=== PATIENT | female | born 1995 | race Caucasian/White ===

== ENCOUNTER 2017-03-16 20:53 | Observation (INO) | payer OTHER, SELFPAY ==
[2017-03-16 21:44] VITALS: BP 126/59; PULSE 92; RESP 20; TEMP 36.7; O2SAT 100; BMI 28.3
[2017-03-16 22:25] LABS: Basophils % 0.1 % (0.1-2.0); Eosinophils # 0.3 K/mm3 (0.0-0.4); Hematocrit 35.5 % (37.0-47.0); Lymphocytes # 1.5 K/mm3 (0.7-4.5); Mean Corpuscular HGB Conc 33.8 g/dL (31.8-35.4); Mean Corpuscular Hemoglobin 30.5 pg (27.0-31.2); Mean Corpuscular Volume 90.3 fl (81-99); Mean Platelet Volume 6.9 fl (7.4-10.4); Monocytes # 1.2 K/mm3 (0.1-1.0); Monocytes % 4.1 % (1.7-9.3); Neutrophils # 26.8 K/mm3 (1.8-7.8); Neutrophils % 89.8 % (37.0-80.0); Platelet Count 328 K/mm3 (142-424); Red Blood Count 3.93 M/mm3 (4.20-5.40); Red Cell Distribution Width 12.9 % (11.5-17.5); White Blood Count 29.8 K/mm3 (4.5-13.0)
[2017-03-16 22:32] LABS: MANUAL DIFFERENTIAL MANUAL DIFFERENTIAL (MANUAL DIFF)
--- NOTE | 2017-03-16 23:05 | HMH.EDPREG ---
ED Disposition Clinical Impression: Incomplete Disposition: Admitted as Observation Condition on Discharge: Good Referrals: Riya Messer [Primary Care Provider] - - Critical Care Critical Care Time: No Attestation: On 03/16/17, the high probability of a clinically significant, sudden or life threatening deterioration of the following system(s) required my full and direct attention, intervention and personal management. The time I documented below is in addition to time spent performing reported procedures but includes the following listed in this critical care notation. Medical Decision Making - Medical Records Medical records reviewed: Yes: I reviewed the patient's medical records. Vital Signs: 03/16/17 21:44 03/17/17 00:04 Temperature 98.1 F Temperature Source Oral Pulse Rate [Brachial] 92 H 112 H Respiratory Rate 20 20 Blood Pressure [Right Arm] 126/59 133/75 Blood Pressure Mean [Right Arm] 81 94 Blood Pressure Source [Right Arm] Automatic Cuff Blood Pressure Position [Right Arm] Sitting 02 Sat by Pulse Oximetry 100 98 Oxygen Delivery Method Room Air - Lab Data Lab Results 03/16/17 22:15: WBC 29.8 H*, RBC 3.93 L, Hgb 12.0 L, Hct 35.5 L, MCV 90.3, MCH 30.5, MCHC 33.8, RDW 12.9, Plt Count 328, MPV 6.9 L, Neut % (Auto) 89.8 H, Lymph % (Auto) 5.0 L, [place] % (Auto) 4.1, Eos % (Auto) 1.0, Baso % (Auto) 0.1, Neut # (Auto) 26.8 H, Lymph # (Auto) 1.5, [place] # (Auto) 1.2 H, Eos # (Auto) 0.3, Baso # (Auto) 0.0 03/16/17 22:15: HCG, Quant [id number] H 03/16/17 22:15: PT 10.8, INR 1.00 03/16/17 22:15: Sodium 134 L, Potassium 3.5, Chloride 101, Carbon Dioxide 22, Anion Gap 14.5, BUN 8, Creatinine 0.58, Estimated Creat Clear 188, Estimated GFR 133, Est GFR ( Amer) 160, Glucose 81, Calcium 8.7, Total Bilirubin 0.5, AST 72 H, ALT 295 H, Alkaline Phosphatase 58, Total Protein 7.5, Albumin 3.7, Globulin 3.8 H, Albumin/Globulin Ratio 1.0 L 03/16/17 22:15: Urine Opiates Screen Positive H, Ur Barbituates Screen Negative, Ur Phencyclidine Scrn Negative, Ur Amphetamines Screen Negative, U Methamphetamines Scrn Negative, U Benzodiazepines Scrn Negative, Urine Cocaine Screen Negative, U Marijuana (THC) Screen Positive H 03/16/17 23:24: Urine Color Yellow, Urine Appearance Clear, Urine pH 6.0, Ur Specific [place] >= 1.030, Urine Protein Negative, Urine Glucose (UA) Negative, Urine Ketones 3+, Urine Blood 1+, Urine Nitrate Negative, Urine Bilirubin Negative, Urine Urobilinogen 0.2, Ur Leukocyte Esterase Negative Result diagrams: 03/16/17 22:15 03/16/17 22:15 Orders (Tests/Meds): ED MEDICATIONS Discontinued Medications Generic Name Dose Route Start Last Admin Trade Name Freq PRN Reason Stop Dose Admin Hydromorphone HCl 1 mg 03/17/17 00:06 03/17/17 00:10 Dilaudid 2mg/Ml Syringe IV 03/17/17 00:07 1 mg ONCE ONE Administration Sodium Chloride 1,000 mls @ 999 mls/hr 03/16/17 23:00 03/16/17 23:14 Sod Chloride 0.9% 1000ml Bag IV 03/17/17 00:00 999 mls/hr .Q1H1M MANUEL Administration Promethazine HCl 12.5 mg 03/17/17 00:07 03/17/17 00:14 Phenergan 25mg/Ml 1ml Vial IV 03/17/17 00:08 12.5 mg ONCE ONE Administration Sodium Chloride 25 ml 03/17/17 00:07 Sod Chloride 0.9% 25ml Bag IV 03/17/17 00:08 ONCE ONE ORDERS Category Date Time Status ABO/RH Type Stat BBK 03/17/17 00:30 Received Complete Blood Count Auto Diff Stat Lab 03/16/17 22:15 Results UA [Urinalysis and Microscopic] Stat Lab 03/16/17 23:24 Results UA [Urinalysis and Microscopic] Stat Lab 03/16/17 23:25 Ordered US OB transvaginal Stat Ultrasound 03/16/17 23:20 Taken - US Data US Images: Pelvis ED US Reviewed: Yes: I discussed the US results w/the radiologist Findings Narrative: pending miscarriage - Physician Consults Physician Consulted: [email or web address] Reason -: Admission - Mauri Inquiry Pt receiving controlled substance: No HPI - General Chief complaint: Vaginal
--- NOTE | 2017-03-16 23:20 | US_ITS ---
US OB transvaginal HISTORY: ITS.REASON: vag bleeding ORDERING PHYSICIAN: Fadi Silva MD PATIENT AGE: 22 years COMPARISON: None FINDINGS: There is an intrauterine gestation with a crown-rump length of 1 cm correlating to gestational age of 7 weeks 1 day. heart tones are NOT identified. The gestation and sac are at the lower uterine segment. There is some increased echogenicity superior to the gestational sac which could be due to some bleeding. The adnexa are unremarkable. IMPRESSION: Nonviable gestation. No heart tones evident with an estimated gestational age of 7 weeks 1 day
[2017-03-16 23:44] LABS: Microscopic, Urine URINE MICROSCOPIC (MICROSCOPIC)
--- NOTE | 2017-03-16 23:45 | PC.NURSE ---
pt to rad for ultrasound.
[2017-03-16 23:51] LABS: Prothrombin Time 10.8 seconds (9.4-11.8)
[2017-03-16 23:58] LABS: Appearance,Urine CLEAR (Clear); Bilirubin,Urine Negative (Negative); Blood, Urine 1+ (Negative); Color,Urine YELLOW (Yellow); Glucose,Urine (UA) Negative (Negative); Ketones,Urine 3+ (Negative); Leukocyte Esterase,Urine Negative (Negative); Nitrate,Urine Negative (Negative); Protein,Urine Negative (Negative); Specific Gravity, Urine >= 1.030 (1.005-1.030); Urobilinogen,Urine 0.2 EU/dl (0.2)
[2017-03-17] VITALS (19 sets, daily range): BP systolic 90–133; BP diastolic 43–90; PULSE 71–112; RESP 12–22; TEMP 36.4–36.7; O2SAT 96–100; BMI 29.2
[2017-03-17 00:05] LABS: Alanine Aminotransferase 295 U/L (12-78); Albumin Level 3.7 gm/dL (3.4-5.0); Alkaline Phosphatase 58 U/L (46-116); Anion Gap 14.5 mEq/L (5-15); Aspartate Amino Transferase 72 U/L (15-37); Bilirubin,Total 0.5 mg/dL (0.2-1.0); Blood Urea Nitrogen 8 mg/dL (7-18); Calcium 8.7 mg/dL (8.5-10.1); Carbon Dioxide 22 mmol/L (21.0-32.0); Chloride 101 mmol/L (98-107); Creatinine Clearance Estimated 188 mL/min (0-300); Creatinine,Serum 0.58 mg/dL (0.55-1.02); Estimated Glomerular Filt Rate 133 ml/min (>60); GFR (African American) 160 ML/MIN (>60); Globulin 3.8 gm/dl (1.3-3.2); Glucose 81 mg/dL (74-106); Potassium 3.5 mmoL/L (3.5-5.1); Sodium 134 mmol/L (136-145); Total Protein,Serum 7.5 gm/dL (6.4-8.2)
[2017-03-17 00:10] LABS: Amphetamine/Metha Screen,Urine Negative ng/mL (<1000); Barbiturates Screen,Urine Negative ng/mL (<200); Benzodiazepines Screen,Urine Negative ng/mL (200); Cannabinoid Screen,Urine Positive ng/mL (<50); Cocaine Screen,Urine Negative ng/g (<300); Methadone Screen,Urine Negative ng/mL (<300); Opiate Screen,Urine Positive ng/mL (<300); Phencyclidine Screen,Urine Negative ng/mL (<25)
--- NOTE | 2017-03-17 00:42 | PC.NURSE ---
AT BEDSIDE WITH DR. MANRIQUE FOR VAGINAL EXAM.
--- NOTE | 2017-03-17 00:57 | PC.NURSE ---
AT BEDSIDE WITH PT. OR CONSENT SIGNED
--- NOTE | 2017-03-17 01:02 | PC.NURSE ---
SPOKE WITH PURNIMA IN PHARMACY. CONFIRMED 2G CEFAZOLIN IN 100ML NS.
[2017-03-17 01:18] LABS: Anisocytosis 1+; Lymphocytes % 4 % (10-50); Monocytes % 5 % (2-9); Neutrophils % 91 % (42-76); Platelet Estimate Normal; Total Cells Counted 100
[2017-03-17 01:42] LABS: Bacteria,Urine 1+ /lpf; Mucus,Urine 1+ /lpf
--- NOTE | 2017-03-17 01:59 | HMH.OPNOTE ---
Date of procedure: 03/17/17 (Inevitable spontaneous ) Pre-op Diagnosis:: Inevitable spontaneous Post-op diagnosis:: same Procedure performed:: Dilatation and suction curettage Surgeon:: Christopher Porras MD ASSISTANT MECHANIC:: Tulio Horn Anesthesia: GETA Estimated blood loss (mL): 100 Operative findings:: See operative note Operative note:: After the patient was prepped and draped in usual fashion and general anesthesia was administered, examination under anesthesia revealed an open cervix with blood and clots at the cervical os. A weighted speculum was placed within the posterior fourchette of the vagina, and the anterior lip of the cervix was grasped with a single-tooth tenaculum. The cervix easily admitted a #20 Hegar dilator. The uterus was sounded in an anteverted direction to 9 cm, after which a sharp curette was introduced into the endometrial cavity, with the retrieval of a large amount of products of conception. This was followed by suction with a #9 curved suction tip, and again by sharp curettage and suction, until it was felt that the cavity was clean. Intravenous Pitocin was begun, and the uterus was involuting well at the close of the procedure. The sponge and needle count was correct. The estimated blood loss was 100 cc. The patient tolerated the procedure well, and was taken to PACU in excellent condition. Her blood type is Rh+, and therefore she is not a candidate for RhoGam. She will be observed overnight. Pathology: other (Products of conception) Condition: stable Disposition: observation Complications:: None
--- NOTE | 2017-03-17 02:02 | P.PN_ITS ---
[facility] Anesthesia Checklist - Structural Data Admitted From: Home Planned Operative Procedure/s: d/c Consent for Planned Operative Procedure(s) Verified: Yes Verified Documents: Surgical Consent - Airway Assessment C-Spine Mobility Assessed: Yes TMJ Mobility Assessed: Yes Dentition: Good Dentition - Neurological Assessment Level of Consciousness: Awake, Alert - Anesthesia Plan Anesthesia Risk discussed: Yes Anesthesia Plan: Verified ASA Class: I Anesthesia Type: General [facility] Anesthesia HX I have reviewed the patient's past medical history: Yes
--- NOTE | 2017-03-17 02:02 | HMH.ANESI ---
[facility] Anesthesia Record Part I Intake, IV Amount: 500 Estimated blood loss (mL): 150 Urine output (mL): 50 Blood Pressure: 112/68 SaO2: 97 Pulse Rate: 95 Respiratory Rate: 12 Temperature: 97.9 F Patient is:: Awake Stable to PACU at:: 02:00
--- NOTE | 2017-03-17 02:03 | HMH.ANESII ---
[facility] Anesthesia Record Part II Discharge Time: 02:30 Destination: floor PACU nurse assessment reviewed?: Yes Patient Condition:: Good Anesthesia Complications:: None
[2017-03-17 03:35] LABS: Hematocrit 31.2 % (37.0-47.0)
[2017-03-17 03:39] LABS: Hemoglobin 10.6 g/dL (12.2-16.2)
--- NOTE | 2017-03-17 08:27 | P.CONPHA_ITS ---
[facility] Pharmacy VTE Monitoring - Patient Demographics Admission date: 03/17/17 Report Date: 03/17/17 Time: 08:25 Allergies/Adverse Reactions: Patient Allergies No Known Allergies Allergy (Verified 03/16/17 21:50) Height: 1.65 m Weight: 79.861 kg Patient Problems: Current Active Problems Incomplete (Acute) - VTE Risk Labs: VTE Related Lab Results Hgb 10.6 g/dL (12.2-16.2) L D 03/17/17 03:30 Hct 31.2 % (37.0-47.0) L 03/17/17 03:30 Plt Count 328 K/mm3 (142-424) 03/16/17 22:15 PT 10.8 seconds (9.4-11.8) 03/16/17 22:15 INR 1.00 (0.9-1.1) 03/16/17 22:15 BUN 8 mg/dL (7-18) 03/16/17 22:15 Creatinine 0.58 mg/dL (0.55-1.02) 03/16/17 22:15 Estimated Creat Clear 188 mL/min (0-300) 03/16/17 22:15 Was VTE Risk Assessment Performed: Yes VTE Score: 2 VTE Risk Level: Low Risk Clinical Trial Participant: No - Prophylaxis VTE Prophylaxis Ordered?: Yes Types of VTE Prophylaxis: IPCS Knee High
[2017-03-17 08:48] LABS: Hematocrit 32.8 % (37.0-47.0); Hemoglobin 10.9 g/dL (12.2-16.2)
--- NOTE | 2017-03-17 09:55 | HMH.ACPN2 ---
Internal Medicine - PN: Subj *Date: 03/17/17 *Time: 09:55 Interval history: This is day of surgery. The patient is doing well. Hemoglobin is 10.2 g, but she is clinically stable. Bleeding is decreased. She will be discharged today. Her Rh is positive. Exam Vital signs and Labs for Last 24 Hours: Temp Pulse Resp BP Pulse Ox 98.0 F 72 18 98/62 97 03/17/17 06:30 03/17/17 09:30 03/17/17 09:30 03/17/17 09:30 03/17/17 09:30 Laboratory Results - last 24 hr 03/17/17 03:30: Hgb 10.6 L D, Hct 31.2 L 03/17/17 08:05: Hgb 10.9 L, Hct 32.8 L I & O for Last 24 hours: Intake & Output 03/14/17 03/15/17 03/16/17 03/17/17 11:59 11:59 11:59 11:59 Intake Total 1740 / 1740 Balance 1740 / 1740 Weight 176 lb 1 oz
--- NOTE | 2017-03-17 09:56 | HMH.DCSUM ---
General - General Admission date: 03/17/17 Discharge date: 03/17/17 HPI HPI: This 23-year-old 1, now para 0, Ab1 white female was admitted at 8 weeks of gestation to the emergency room with heavy bleeding and a nonviable fetus per ultrasound. She was taken to the operating room, where she underwent a dilatation and suction evacuation, without complications. Estimated blood loss was 100 cc. She is Rh+, and therefore not a candidate for RhoGam. Postoperatively, she is done well. She is in ambulating. Her bleeding has decreased. Her postop hemoglobin is 10.2 g, but she is clinically stable. She is discharged home on Tylenol No. 3 (#20), 1 p.o. every 6 hours as needed pain, and on vitamins twice a day. She is given appropriate instructions as to diet and exercise, and she is to return to the office in 2 weeks for follow-up. Objective Vital signs: Temp Pulse Resp BP Pulse Ox 98.0 F 72 18 98/62 97 03/17/17 06:30 03/17/17 09:30 03/17/17 09:30 03/17/17 09:30 03/17/17 09:30 Results Labs on day of discharge: Labs from last 24 hours 03/17/17 03/17/17 08:05 03:30 Hgb 10.9 L 10.6 L D Hct 32.8 L 31.2 L Meds Home Medications Medication Instructions Recorded Confirmed Type No Known Home Medications [No 03/17/17 03/17/17 History Known Home Medications] Allergies Allergy/AdvReac Type Severity Reaction Status Date / Time No Known Allergies Allergy Verified 03/16/17 21:50 Discharge Plan - Patient Discharge Instructions ACTIVITY: Continue current activity DIET: advance to your usual diet Additional Instructions: Pelvic rest - Follow up Plan Follow up with: Christopher Porras MD [Staff Physician] - 2 weeks Disposition: Home, Self-Retirement Medications: Home Medications Medication Instructions Recorded Confirmed Type No Known Home Medications [No 03/17/17 03/17/17 History Known Home Medications] Prescriptions/Medication Reconciliation: No Action No Known Home Medications [No Known Home Medications]
--- NOTE | 2017-03-17 09:59 | P.DS_ITS ---
General - General Admission date: 03/17/17 Discharge date: 03/17/17 HPI HPI: This 23-year-old 1, now para 0, Ab1 white female was admitted at 8 weeks of gestation to the emergency room with heavy bleeding and a nonviable fetus per ultrasound. She was taken to the operating room, where she underwent a dilatation and suction evacuation, without complications. Estimated blood loss was 100 cc. She is Rh+, and therefore not a candidate for RhoGam. Postoperatively, she is done well. She is in ambulating. Her bleeding has decreased. Her postop hemoglobin is 10.2 g, but she is clinically stable. She is discharged home on Tylenol No. 3 (#20), 1 p.o. every 6 hours as needed pain, and on vitamins twice a day. She is given appropriate instructions as to diet and exercise, and she is to return to the office in 2 weeks for follow- up. Objective Vital signs: Temp Pulse Resp BP Pulse Ox 98.0 F 72 18 98/62 97 03/17/17 06:30 03/17/17 09:30 03/17/17 09:30 03/17/17 09:30 03/17/17 09:30 Results Labs on day of discharge: Labs from last 24 hours 03/17/17 03/17/17 08:05 03:30 Hgb 10.9 L 10.6 L D Hct 32.8 L 31.2 L Meds Home Medications Medication Instructions Recorded Confirmed Type No Known Home Medications [No 03/17/17 03/17/17 History Known Home Medications] Allergies Allergy/AdvReac Type Severity Reaction Status Date / Time No Known Allergies Allergy Verified 03/16/17 21:50 Discharge Plan - Patient Discharge Instructions ACTIVITY: Continue current activity DIET: advance to your usual diet Additional Instructions: Pelvic rest - Follow up Plan Follow up with: Christopher Porras MD [Staff Physician] - 2 weeks Disposition: Home, Self-Penitentiary Medications: Home Medications Medication Instructions Recorded Confirmed Type No Known Home Medications [No 03/17/17 03/17/17 History Known Home Medications] Prescriptions/Medication Reconciliation: No Action No Known Home Medications [No Known Home Medications]
== END 2017-03-17 10:20 | disposition home or self-care (01) ==
LOC: ER 03-17 00:55 → SDC 03-17 01:41 → 2ND 03-17 01:57
PROVIDERS: Admitting Provider Obstetrics & Gynecology; Emergency Provider Emergency Medicine; PCP Family Medicine; Visit Provider Obstetrics & Gynecology
PROC: (CPT 59812; principal; 2017-03-17 01:25)
DX: O03.4 Incomplete spontaneous abortion without complication (principal); F17.210 Nicotine dependence, cigarettes, uncomplicated
CPT/HCPCS: 59812; 76830; 80053; 80305; 81001; 84702; 85007; 85014; 85018; 85025; 85610; 86900; 86901; 88305; 99282; G0378; J2405

== ENCOUNTER → 2020-01-25 20:05 | Outpatient (CLI) | payer OTHER, SELFPAY ==
[2020-01-25 20:14] LABS: Basophils # 0.1 K/mm3 (0-0.2); Basophils % 0.6 % (0.1-2.0); Eosinophils # 0.4 K/mm3 (0.0-0.4); Eosinophils % 4.1 % (0.1-12.0); Hematocrit 43.4 % (37.0-47.0); Lymphocytes # 2.3 K/mm3 (0.7-4.5); Lymphocytes % 26.3 % (10-50); Mean Corpuscular HGB Conc 32.3 g/dL (31.8-35.4); Mean Corpuscular Hemoglobin 29.5 pg (27.0-31.2); Mean Corpuscular Volume 91.4 fl (81-99); Mean Platelet Volume 8.3 fl (7.4-10.4); Monocytes # 0.5 K/mm3 (0.1-1.0); Monocytes % 5.4 % (1.7-9.3); Neutrophils # 5.6 K/mm3 (1.8-7.8); Neutrophils % 63.5 % (37.0-80.0); Platelet Count 364 K/mm3 (142-424); Red Blood Count 4.75 M/mm3 (4.20-5.40); Red Cell Distribution Width 14.9 % (11.5-17.5); White Blood Count 8.8 K/mm3 (4.8-10.8)
[2020-01-25 20:36] LABS: Alanine Aminotransferase 26 U/L (12-78); Albumin Level 4.8 g/dl (3.5-5.0); Albumin/Globulin Ratio 1.3 (1.1-1.8); Alkaline Phosphatase 76 U/L (38-126); Anion Gap 13.5 mEq/L (5-15); Aspartate Amino Transferase 31 U/L (14-36); Bilirubin,Total 0.3 mg/dl (0.2-1.3); Blood Urea Nitrogen 14 mg/dl (7-17); Calcium 10.5 mg/dl (8.4-10.2); Carbon Dioxide 28 mmol/L (22.0-30.0); Chloride 103 mmol/L (98-107); Chol/HDL Ratio 2.9 (1-3.5); Cholesterol 140 mg/dl (140-200); Estimated Glomerular Filt Rate 104 ml/min (>60); GFR (African American) 125 ML/MIN (>60); Globulin 3.6 g/dL (1.3-3.2); Glucose 91 mg/dl (74-100); HDL Cholesterol 49 mg/dl (40-60); Potassium 4.5 mmoL/L (3.5-5.1); Sodium 140 mmol/L (136-145); Total Protein,Serum 8.4 g/dl (6.3-8.2); Triglycerides 66 mg/dl (30-150); VLDL Cholesterol 13 mg/dL (0-40)
[2020-01-25 20:46] LABS: Direct LDL Cholesterol 73.41 mg/dL (100-129)
[2020-01-25 20:52] LABS: 25-OH Vitamin D, Total 34.5 ng/mL (30-100)
[2020-01-25 20:53] LABS: Free T4 (Free Thyroxine) 1.15 ng/dl (0.78-2.19)
[2020-01-25 21:07] LABS: Thyroid Stimulating Hormone 2.38 uIU/mL (0.465-4.68)
[2020-01-27 10:14] LABS: Hep A Ab, IgM Negative (Negative); Hep A Ab, Total Negative (Negative); Hep B Core Ab, Total Negative (Negative)
[2020-01-27 10:42] LABS: Hep B Surface Ab, Qual Non Reactive (.)
== END ==
PROVIDERS: Visit Provider Emergency Medicine
DX: B19.20 Unspecified viral hepatitis C without hepatic coma (principal); R53.83 Other fatigue; E55.9 Vitamin D deficiency, unspecified
CPT/HCPCS: 80053; 80061; 82306; 84439; 84443; 85025; 86704; 86706; 86708; 87522

== ENCOUNTER → 2020-02-07 16:22 | Outpatient (CLI) | payer OTHER, SELFPAY ==
--- NOTE | 2020-02-07 16:26 | MR_ITS ---
PROCEDURE: MR LUMBAR SPINE WO CON CLINICAL INDICATION: back pain lbp. xyrs. no recent injury. bilateral leg pain, numbness,and tingling.no prior. COMPARISON: No exams were available for comparison TECHNIQUE: Standard multiplanar multiecho sequences are performed without contrast. 3-D MIP and myelographic images are also rendered and reviewed FINDINGS: There is normal alignment. The spinal cord ends at the L1 level. T11-T12, T12-L1, L1-L2 have an unremarkable appearance. L2-L3: Mild facet and ligamentum hypertrophy. L3-L4: Degenerative disc disease with mild concentric bulging disc with mild facet and ligamentum hypertrophy. There is mild bilateral foraminal narrowing. A Schmorl's node is present along the anterior superior endplate of L4 with bulging disc anteriorly. L4-5: Mild concentric bulging disc with minimal broad-based central disc protrusion very slightly eccentric toward the left with minimal left lateral recess narrowing with facet and ligamentum hypertrophy. There is mild bilateral foraminal narrowing slightly greater on the left. L5-S1: Degenerative disc disease. There is bulging disc with broad-based central and right paracentral and foraminal disc protrusion versus asymmetric bulging disc with small annular fissure in the right foraminal region. There is moderate right-sided foraminal narrowing and right lateral recess narrowing with the disc abutting the anterior aspect of the right S1 nerve root. IMPRESSION: 1. L3-L4: Degenerative disc disease with mild concentric bulging disc with mild facet and ligamentum hypertrophy. There is mild bilateral foraminal narrowing. A Schmorl's node is present along the anterior superior endplate of L4 with bulging disc anteriorly. 2. L4-5: Mild concentric bulging disc with minimal broad-based central disc protrusion very slightly eccentric toward the left with minimal left lateral recess narrowing with facet and ligamentum hypertrophy. There is mild bilateral foraminal narrowing slightly greater on the left. 3. L5-S1: Degenerative disc disease. There is bulging disc with broad-based central and right paracentral and foraminal disc protrusion versus asymmetric bulging disc with small annular fissure in the right foraminal region. There is moderate right-sided foraminal narrowing and right lateral recess narrowing with the disc abutting the anterior aspect of the right S1 nerve root. 4. No extruded herniated disc or canal stenosis. Dictated by: Moiz Koroma MD 02/08/2020 09:44 Moiz Koroma MD in [place] 02/08/2020 09:44
--- NOTE | 2020-02-07 16:26 | MR_ITS ---
PROCEDURE: MR CERVICAL SPINE WO CON CLINICAL INDICATION: neck pain bilateral arm and hand numbness. no prior. no injury COMPARISON: No exams were available for comparison TECHNIQUE: Standard multiplanar multiecho sequences are performed without contrast. 3-D MIP and myelographic images are also rendered and reviewed FINDINGS: There is normal alignment. The craniocervical junction has an unremarkable appearance. C2-C3 has an unremarkable appearance. C3-C4: Unremarkable. C4-C5: Unremarkable. C5-C6: Unremarkable. C6-C7: Minimal disc desiccation. C7-T1 and T1-T2 are unremarkable. No canal stenosis, bulging disc, degenerative changes, or herniated discs. The spinal cord has an unremarkable appearance. IMPRESSION: Negative MRI of the cervical spine. Dictated by: Moiz Koroma MD 02/08/2020 10:31 Moiz Koroma MD in [place] 02/08/2020 10:31
== END ==
PROVIDERS: PCP Emergency Medicine; Visit Provider Emergency Medicine
DX: M54.2 Cervicalgia (principal); M54.5 Low back pain
CPT/HCPCS: 72141; 72148; 76376

== ENCOUNTER → 2020-03-01 13:48 | Outpatient (POV) | payer OTHER, SELFPAY ==
[2020-03-01 14:08] VITALS: BP 123/74; PULSE 74; RESP 18; O2SAT 98; BMI 31.4
--- NOTE | 2020-03-01 16:08 | HMH.PMCON ---
Assessment and Plan (1) Degenerative disc disease Status: Chronic Category: Medical (2) Radiculopathy of lumbar region Status: Chronic Category: Medical Code(s): M54.16 - Radiculopathy, lumbar region - Assessment and plan all Dx Assessment and Plan for all problems:: We will start the patient in physical therapy. We will also set her up for an L4-L5 lumbar epidural steroid injection. I will follow-up with her after this reassess her symptoms at that time she has been instructed to call the office if she has any issues prior to her next appointment. Dr. Anderson has reviewed this note and agrees with this plan of care. This note was dictated using voice recognition software and may contain errors or omissions HPI - Data of Consult Consult date: 03/01/20 Requesting Physician: Kelly Rosado APRN Primary Care Provider: Ishan Sanchez MD - Consult Narrative Reason for consult: Back pain, leg pain History of present illness: Ms. Umana is a 25 year old female who presents today for consultation regards to her low back and leg pain. Patient has difficulty with bending and lifting more nothing really decreases her pain. She rates it a 5 out of 10. She reports numbness at times in bilateral lower extremities. Patient has not had any conservative care at this time other than anti-inflammatory [id number] medications. Patient does have a MRI showing bulging disc along with foraminal narrowing and an L5-S1 right-sided foraminal narrowing with right lateral recess narrowing with the disc abutting the anterior aspect of the right S1 nerve root per her report. Patient and I discussed options in regards to treatment. I do believe physical therapy and epidural injections will be very beneficial for her. Patient is in agreement. She is not on any anticoagulation therapy. CC: Kelly Rosado APRN [facility] History I have reviewed the patient's past medical history: Yes Medical History: Reports:: Hepatitis Denies:: Cancer, Diabetes Mellitus Type 1, Diabetes Mellitus Type 2, MRSA *Have you ever received a pneumonia vaccine?: No *Have you received a flu vaccine this season?: No Laterality Cases: Bilateral: Tonsillectomy Other Surgeries: Yes: Dilation and Curettage Amputation: No Fractures: No - *Social History Last grade of school completed: High school graduate Smoking Status: Current every day smoker Tobacco Type: e-cigarettes # Packs/Day (cigarettes): 1 Alcohol Intake: never Alcohol Intake Frequency:: a few times a week Substance Use Type: former substance user, methamphetamine *Occupational Status:: unemployed Housing: house Household Members: other *Travel in the last 8 weeks: None Family Hx:: Unable to obtain Review of Systems - Review of Systems ROS General: no recent weight change, no fever, no sleep disturbances Respiratory: no cough, no shortness of air, no recurring pulmonary infections Cardiovascular/Peripheral Vascular: No chest pain, No palpitations, no edema, no shortness of breath. Gastrointestinal: no new onset incontinence, normal bowel movements reported Genitourinary: no new onset incontinence Musculoskeletal: [Back pain, leg pain Psychiatric: normal mood/ affect Neurological: [denies new onset weakness in extremities], [denies new onset balance issues] Meds Home Medications Medication Instructions Recorded Confirmed Type No Known Home Medications 03/17/17 01/25/20 History Allergies Allergy/AdvReac Type Severity Reaction Status Date / Time No Known Allergies Allergy Verified 02/15/20 14:26 Objective Vital signs: Pulse Resp BP Pulse Ox 74 18 123/74 98 03/01/20 14:08 03/01/20 14:08 03/01/20 14:08 03/01/20 14:08 Narrative: Physical Exam General: Alert and oriented x3, no acute distress, pleasant and cooperative, [on room air] Lungs: Resps E/U, Symmetrical chest expansion, Eyes: PERRL Musculoskeletal: Flexion and ex
== END ==
PROVIDERS: PCP Emergency Medicine; Visit Provider Clinical Nurse Specialist Family Health
DX: M54.16 Radiculopathy, lumbar region (principal)
CPT/HCPCS: 99202; G0463

== ENCOUNTER 2020-03-09 08:39 | Day surgery (SDC) | payer OTHER, SELFPAY ==
[2020-03-09 09:27] VITALS: BP 130/83; PULSE 91; RESP 18; TEMP 36.4; O2SAT 91; BMI 30.7
[2020-03-09 10:06] VITALS: BP 135/78; PULSE 74; RESP 18; O2SAT 99
[2020-03-09 10:08] VITALS: BP 138/78; PULSE 74; RESP 18; O2SAT 98
--- NOTE | 2020-03-09 10:16 | HMH.PMPROC ---
- Procedure Date: 03/09/20 Time: 10:16 Anesthesiologist:: Corey Anderson MD Complications:: None Pre-procedure Diagnosis:: Degenerative disc disease of lumbar spine with lumbar radiculopathy symptoms Post-procedure Diagnosis:: Same Indications for Procedure:: This patient is a pleasant 25-year-old white female who we are treating for low back pain with lumbar radiculopathy symptoms. She has increasing pain in her low back with radiation down both legs. She does have a bulging disc at L5-S1. With a lumbar epidural steroid injection today to see if this will help with her pain symptoms. Procedure Details:: Lumbar epidural steroid injection under fluoroscopy Informed consent was obtained and the risk and benefits of the procedure was explained to the patient. The patient was taken to the procedure room. The patient was placed prone on the procedure table. The patient was prepped and draped in sterile fashion. C-arm fluoroscopy was used to view the lumbar spine. Skin and subcutaneous tissues were anesthetized using lidocaine. I placed an 18-gauge epidural needle and advanced into the L4-L5 interspace using fluoroscopic guidance and [id number] to air. After confirmation of needle placement in the epidural space with dye I injected 2 mL of lidocaine 1.5% with Depo-Medrol 80 mg. Patient tolerated the procedure well with no complications. Plan and Disposition:: We will follow-up with her in 2 weeks. Will reevaluate symptoms at that time.
[2020-03-09 10:20] VITALS: BP 131/76; PULSE 70; RESP 18; O2SAT 100
== END 2020-03-09 10:21 | disposition home or self-care (01) ==
LOC: SC.PAINP 08:40
PROVIDERS: PCP Emergency Medicine; Visit Provider Anesthesiology
DX: M51.16 Intervertebral disc disorders with radiculopathy, lumbar region (principal); Z72.0 Tobacco use
CPT/HCPCS: 62323; J1040; Q9966

== ENCOUNTER → 2021-05-20 16:00 | Outpatient (CLI) | payer OTHER, SELFPAY ==
[2021-05-20 16:09] LABS: Alanine Aminotransferase 28 U/L (12-78); Albumin/Globulin Ratio 1.7 (1.1-1.8); Alkaline Phosphatase 67 U/L (38-126); Anion Gap 13.7 mEq/L (5-15); Aspartate Amino Transferase 30 U/L (14-36); Bilirubin,Total 0.5 mg/dl (0.2-1.3); Blood Urea Nitrogen 16 mg/dl (7-17); Calcium 9.6 mg/dl (8.4-10.2); Carbon Dioxide 26 mmol/L (22.0-30.0); Chloride 104 mmol/L (98-107); Estimated Glomerular Filt Rate 123 ml/min (>60); GFR (African American) 149 ML/MIN (>60); Globulin 2.9 g/dL (1.3-3.2); Glucose 69 mg/dl (74-100); Potassium 4.7 mmoL/L (3.5-5.1); Sodium 139 mmol/L (136-145); Total Protein,Serum 7.9 g/dl (6.3-8.2)
== END ==
PROVIDERS: Visit Provider Emergency Medicine
DX: B19.20 Unspecified viral hepatitis C without hepatic coma (principal)
CPT/HCPCS: 80053; 87522